=== PATIENT | female | born 1965 | race Caucasian/White ===

== ENCOUNTER → 2024-08-04 07:22 | Outpatient (REF) | payer BC, SELFPAY | LOC: HWWDC 07:22 | PROVIDERS: ATTENDING PHYSICIAN Obstetrics & Gynecology; FAMILY PHYSICIAN Family Medicine | DX: Z12.31 Encounter for screening mammogram for malignant neoplasm of breast (principal) | CPT/HCPCS: 77063; 77067 ==

== ENCOUNTER 2024-10-06 12:26 | Inpatient (IN) | payer BC, SELFPAY ==
[2024-10-06] VITALS (7 sets, daily range): BP systolic 123–152; BP diastolic 45–80; BMI 29.0; BMI 29.4
[2024-10-06] MEDS: ZOFRAN 4 MG IV (04:59)
[2024-10-06 05:06] LABS: % Basophils 0.3 % (0-2); % Eosinophils 0.5 % (0-6); % Immature Granulocytes 0.4 % (0-0.5); % Lymphocytes 17.3 % (20.5-51.1); % Monocytes 4.5 % (1.7-9.3); Absolute Eosinophils 0.1 10^3/uL (0-0.7); Absolute Immature Granulocytes 0.1 10^3/uL (0-0.05); Absolute Lymphocytes 2.6 10^3/uL (1.2-3.4); Absolute Monocytes 0.7 10^3/uL (0.1-0.6); Absolute Neutrophils 11.6 10^3/uL (1.4-6.5); Hemoglobin 14.7 g/dL (12.0-16.0); Mean Corp Hgb Conc. 35.9 g/dL (33.0-37.0); Mean Corpuscular Hgb 30.4 pg (27.0-31.0); Mean Corpuscular Volume 84.9 fL (81.0-99.0); Mean Platelet Volume 10.3 fL (7.4-10.4); Nucleated Red Blood Cells % 0 %; Platelet Count 260 10^3/uL (130-400); Red Blood Cell Count 4.83 10^6/uL (4.20-5.40); Red Cell Dist. Width 11.7 % (11.5-14.5)
--- NOTE | 2024-10-06 05:20 | ED.GENMED ---
History of Present Illness
<DO Irina Choudhury Filed: 10/06/24 05:23>
General
Chief Complaint: Abdominal Pain
Source: patient
Time Seen by Provider: 10/06/24 05:14
History of Present Illness
History of Present Illness:
59-year-old female presents to the emergency room complaining of right upper quadrant abdominal pain that radiates up to her chest. Symptoms began at about 1 AM suddenly. Pain woke her from sleep. She has had nausea and vomiting as well. Patient
denies any previous abdominal operations. She takes medication for anxiety but no other prescription medications.
Past History
<DO Irina Choudhury Filed: 10/06/24 05:23>
Past History
ED Past Medical History: None
Phy Exam
<DO Irina Choudhury Last Filed: 10/06/24 05:23>
Physical Exam
Physical Exam:
General: Awake, Alert, Oriented X3. Patient is in acute distress from abdominal pain.
Vitals: unremarkable
Head: Atraumatic
Eyes: Pupils equal, EOMI
Throat: Airway intact, no exudates
Neck: Trachea midline
Lungs: Clear and equal b/l
Heart: Regular rate, no murmurs
Abd: Soft, tender to palpation right upper quadrant and epigastrium, no pulsatile mass
Neuro: Nonfocal
Skin: Warm, dry, no rash
Extremities: pulses equal b/l, no edema
Course
<DO Irina Choudhury Filed: 10/06/24 05:23>
Orders/Labs/Results
Orders:
Orders
10/06/24 04:38
Electrocardiogram (*1) Urgent
Reason for Study: Abdominal Pain
IV Insert/Care/Rem.- Treatment PRN
10/06/24 04:39
EKG- Treatment ONCE
10/06/24 04:53
Complete Blood Count/With Diff Urgent
Comprehensive Metabolic Panel Urgent
Lipase Urgent
10/06/24 04:56
Ondansetron Injectable [Zofran] 4 mg .ROUTE .STK-MED ONE
10/06/24 04:59
Ondansetron Injectable [Zofran] 4 mg IV NOW STA
10/06/24 05:19
HYDROmorphone [Dilaudid] 1 mg .ROUTE .STK-MED ONE
HYDROmorphone [Dilaudid] 1 mg IV NOW STA
10/06/24 05:20
US Abdomen Complete/Upper Urgent
Comment:
Reason For Exam: ruq pain
10/06/24 05:21
CR Chest - 2 Views Urgent
Comment:
Reason For Exam: upper abd/chest pain
10/06/24 07:42
HYDROmorphone [Dilaudid] 0.5 mg .ROUTE .STK-MED ONE
10/06/24 07:43
HYDROmorphone [Dilaudid] 0.5 mg IV NOW STA
10/06/24 08:03
Urinalysis Reflex To Culture Urgent
Date Specimen was Collected: 10/06/24
Time Specimen was Collected: 08:00
10/06/24 08:21
CT Abd/pelvis W Iv Cont Urgent
Comment:
Reason For Exam: ruq pain
Abnormal Lab Results
10/06/24 10/06/24
04:53 08:03
WBC 15.0 H 10^3/uL
(4.8-10.8)
Abs Immat Gran (auto) 0.1 H 10^3/uL
(0-0.05)
Absolute Neuts (auto) 11.6 H 10^3/uL
(1.4-6.5)
Absolute Monos (auto) 0.7 H 10^3/uL
(0.1-0.6)
Neutrophils % 77.0 H %
(42.2-75.2)
Lymphocytes % 17.3 L %
(20.5-51.1)
Potassium 3.4 L mmol/L
(3.5-5.1)
Carbon Dioxide 18 L mmol/L
(22-30)
Glucose 130 H mg/dl
(70-99)
Calcium 10.4 H mg/dl
(8.4-10.2)
Urine Ketones 1+ A
(Negative)
10/06/24 04:53
10/06/24 04:53
Vital Signs
Initial and Last Documented VS:
Initial Vital Signs
Temp Pulse Resp BP Pulse Ox
97.6 F 109 32 142/67 98
10/06/24 04:34 10/06/24 04:34 10/06/24 04:34 10/06/24 04:34 10/06/24 04:34
Last Documented Vital Signs
Temp Pulse Resp BP Pulse Ox
98.4 F 86 13 131/54 100
10/06/24 10:51 10/06/24 06:45 10/06/24 06:45 10/06/24 10:51 10/06/24 10:51
<Orestes Cardozo, DO - Last Filed: 10/06/24 11:34>
Orders/Labs/Results
Orders:
Orders
10/06/24 04:38
Electrocardiogram (*1) Urgent
Reason for Study: Abdominal Pain
IV Insert/Care/Rem.- Treatment PRN
10/06/24 04:39
EKG- Treatment ONCE
10/06/24 04:53
Complete Blood Count/With Diff Urgent
Comprehensive Metabolic Panel Urgent
Lipase Urgent
10/06/24 04:56
Ondansetron Injectable [Zofran] 4 mg .ROUTE .STK-MED ONE
10/06/24 04:59
Ondansetron Injectable [Zofran] 4 mg IV NOW STA
10/06/24 05:19
HYDROmorphone [Dilaudid] 1 mg .ROUTE .STK-MED ONE
HYDROmorphone [Dilaudid] 1 mg IV NOW STA
10/06/24 05:20
US Abdomen Complete/Upper Urgent
Comment:
Reason For Exam: ruq pain
10/06/24 05:21
CR Chest - 2 Views Urgent
Comment:
Reason For Exam: upper abd/chest pain
10/06/24 07:42
HYDROmorphone [Dilaudid] 0.5 mg .ROUTE .STK-MED ONE
10/06/24 07:43
HYDROmorphone [Dilaudid] 0.5 mg IV NOW STA
10/06/24 08:03
Urinalysis Reflex To Culture Urgent
Date Specimen was Collected: 10/06/24
Time Specimen was Collected: 08:00
10/06/24 08:21
CT Abd/pelvis W Iv Cont Urgent
Comment:
Reason For Exam: ruq pain
Abnormal Lab Results
10/06/24 10/06/24
04:53 08:03
WBC 15.0 H 10^3/uL
(4.8-10.8)
Abs Immat Gran (auto) 0.1 H 10^3/uL
(0-0.05)
Absolute Neuts (auto) 11.6 H 10^3/uL
(1.4-6.5)
Absolute Monos (auto) 0.7 H 10^3/uL
(0.1-0.6)
Neutrophils % 77.0 H %
(42.2-75.2)
Lymphocytes % 17.3 L %
(20.5-51.1)
Potassium 3.4 L mmol/L
(3.5-5.1)
Carbon Dioxide 18 L mmol/L
(22-30)
Glucose 130 H mg/dl
(70-99)
Calcium 10.4 H mg/dl
(8.4-10.2)
Urine Ketones 1+ A
(Negative)
10/06/24 04:53
10/06/24 04:53
Vital Signs
Initial and Last Documented VS:
Initial Vital Signs
Temp Pulse Resp BP Pulse Ox
97.6 F 109 32 142/67 98
10/06/24 04:34 10/06/24 04:34 10/06/24 04:34 10/06/24 04:34 10/06/24 04:34
Last Documented Vital Signs
Temp Pulse Resp BP Pulse Ox
98.4 F 86 13 131/54 100
10/06/24 10:51 10/06/24 06:45 10/06/24 06:45 10/06/24 10:51 10/06/24 10:51
<DO Irina Arreola Last Filed: 10/06/24 11:34>
*Radiology
Radiology exam reviewed: preliminary read by ED provider (no free air noted. ) and radiology read reviewed
*Pulse Oximetry
Patient hypoxic: no
*Critical Care Note
Total Time (30-74mins, 75-104mins- exclusive of procedures): Not Applicable
Data Reviewed
Source: patient and spouse (spouse adds her pain was severe)
Prescriptions/Medications Considered But Not Given:
Consider antibiotics but sign of cholecystitis by CT or ultrasound
<DO Irina Arreola Last Filed: 10/06/24 11:34>
Patient Management
Discussion with other providers: Hospitalist
Escalation/DeEscalation of care consider admission/obs:
Patient reassessed and pain is returning. Abdomen examined and she still is tender in her right upper quadrant. Question whether this is from CT findings of partial small bowel obstruction versus gallbladder source. She does have a noted stone
but no obvious pericholecystic fluid. Given her persistence of symptoms. Admit. Likely could benefit from gastroenterology versus surgical consultation. N.p.o. for now
ED Attending Note
<Donnie Davis DO - Last Filed: 10/06/24 05:23>
-
Portions of this chart may have been created with voice recognition software.� Occasional wrong word or��sound alike� substitutions may have occurred due to the inherent limitations of voice recognition software.
Discharge Plan
Departure
Patient Disposition: Admit
Date of Disposition: 10/06/24
Time of Disposition: 11:32
Admit to: Med/Surg
Presentation/result/management discussed w/ accepting MD/DO: Hospitalist
Discharge Problem:
Cholelithiasis, Partial small bowel obstruction
Prescriptions:
No Action
ibuprofen 800 MG tablet
800 mg PO TID Qty: 20 0RF
hydrocodone-acetaminophen 5 MG/500 MG tablet
1 tab PO .Q6HR Qty: 10 0RF
Referrals:
Rah Savage MD [Family Provider] -
Interventions
Interventions:
*Risk Screen - Suicide Last Done: 10/06/24 04:34
*General Assessment Last Done: 10/06/24 04:34
*Neglect/Abuse Screening Last Done: 10/06/24 04:34
ED- Fall Risk Assessment Last Done: 10/06/24 04:34
*ED COVID-19 Vaccine History Last Done: 10/06/24 04:34
PV-[id number]-[id number] Assessment Last Done: 10/06/24 05:16
Discharge Date and Time
Print Language: LAO
[2024-10-06] MEDS: DILAUDID 1 MG IV ×2 (05:24→16:12)
[2024-10-06 05:30] LABS: ALT (SGPT) 16 U/L (0-35); AST (SGOT) 22 U/L (14-36); Albumin 4.7 g/dl (3.5-5.0); Alkaline Phosphatase 92 U/L (38-126); Blood Urea Nitrogen 12 mg/dl (7-17); Calcium 10.4 mg/dl (8.4-10.2); Carbon Dioxide 18 mmol/L (22-30); Chloride 105 mmol/L (98-107); Glucose 130 mg/dl (70-99); Lipase 267 U/L (23-300); Potassium 3.4 mmol/L (3.5-5.1); Sodium 138 mmol/L (135-145); Total Bilirubin 0.8 mg/dl (0.2-1.3); Total Protein 7.6 g/dl (6.3-8.2); eGFR > 60.00
[2024-10-06] MEDS: DILAUDID 0.5 MG IV (07:43)
[2024-10-06 08:36] LABS: Urine Albumin Negative (Neg - Trace); Urine Bilirubin Negative (Negative); Urine Character Slightly Cloudy (Clear); Urine Color Yellow; Urine Glucose Negative (Negative); Urine Ketone 1+ (Negative); Urine Leukocyte Negative (Negative); Urine Nitrite Negative (Negative); Urine Occult Blood Negative (Negative); Urine Specific Gravity 1.015 (<1.030); Urine Urobilinogen Negative (Neg - 1+)
--- NOTE | 2024-10-06 11:40 | HPS.HSE ---
Family Physician
-
Family Physician: Rah Savage
Chief Complaint
-
Right upper quadrant abdominal pain
History of Present Illness
59 years old female who went to bed feeling normal. She woke up around 1 AM with right-sided abdominal pain radiating to her right shoulder. She had nausea and threw up twice. No fever or chills. Presented to the ER was found to have
leukocytosis. Abdominal ultrasound showed cholelithiasis without signs of inflammation. Abdominal CAT scan showed possible low-grade partial small bowel obstruction with biliary sludge versus stones in the gallbladder. Patient denied sick
contact.
Medical History
Past Medical History
Past Medical History: Reports Other (History of anxiety. History of obesity, on diet and Wegovy)
Past Surgical History: Reports Other (No recent major surgery )
Social History
Tobacco: Non-smoker
Alcohol: Occasional
Drug: None
Personal:
Living: With Family
Employment: Employed
Family History
Family History: Other (Her mother had bowel obstruction and form of colitis)
Allergies / Home Medications
Allergies reflects when Allergies were last updated in [employer].
Home Medications with original date entered in [employer]
Allergy/Medication List:
Allergies
Allergy/AdvReac Type Severity Reaction Status Date / Time
codeine [Codeine] Allergy Severe Hives Verified 10/06/24 04:34
Home Medications
biotin 5 mg capsule 5 mg PO HS 10/06/24
bismuth subsalicylate 262 mg chewable tablet (Pepto-Bismol) 2 tab PO DAILYPRN PRN GERD 10/06/24
levocetirizine 5 mg tablet (Xyzal) 5 mg PO HS 10/06/24
magnesium oxide 200 mg PO HS 10/06/24
semaglutide (weight loss) 2.4 mg/0.75 mL subcutaneous pen injector (Wegovy) 2.4 mg SC 10/06/24
sertraline 50 mg tablet 50 mg PO DAILY 10/06/24
Review of Systems
-
History Source: Patient
A 12 point ROS was completed and negative except as noted: Yes
Constitutional: Denies Fever
EENT: Denies Sore Throat
Respiratory: Denies Cough
Cardiac: Denies Chest Pain
Abdomen/GI: Reports Abdominal Pain, Nausea and Vomiting
: Denies Dysuria
Musculoskeletal: Denies Joint Pain
Skin: Denies Rash
Neurological: Denies Numbness
Endocrine: Denies Temp Intolerance
Psych: Denies Panic Disorder
Physical Exam
Vital Signs
Vital Signs
Temp Pulse Resp BP Pulse Ox
98.4 F 86 13 131/54 100
10/06/24 10:51 10/06/24 06:45 10/06/24 06:45 10/06/24 10:51 10/06/24 10:51
Physical Exam
General: No Apparent Distress and Pain (Right upper quadrant of abdomen)
HEENT: Moist mucous membranes and Atraumatic
Respiratory: Clear
Cardiac: S1/S2 and Regular Rhythm
GI: Soft, Non Distended and Tender (Right upper quadrant)
Rectal: No Masses Palpated
Genito-urinary: No Bloody Urine
Musculoskeletal: No Clubbing, No Cyanosis and No Edema
Skin: Warm; No Jaundice
Neuro: AO x 3 and Nonfocal/grossly intact
Psych: Calm and Intact Judgment/Insight
Laboratory Results
-
10/06/24 04:53
10/06/24 04:53
Laboratory Results
Total Bilirubin 0.8 mg/dl (0.2-1.3) 10/06/24 04:53
AST 22 U/L (14-36) 10/06/24 04:53
ALT 16 U/L (0-35) 10/06/24 04:53
Alkaline Phosphatase 92 U/L (38-126) 10/06/24 04:53
Lipase 267 U/L (23-300) 10/06/24 04:53
Impression/Plan
-
59 years old female presented with sudden onset abdominal pain
#Right upper quadrant abdominal pain
Admit the patient to the hospital
Differential diagnosis include gallbladder disease/bowel obstruction
Abdominal ultrasound consistent with cholelithiasis without inflammation. CAT scan showed possible low-grade small bowel obstruction with gallbladder sludge
Positive leukocytosis
Give antipain medication. She did well with Dilaudid in the ER with no reaction
Continue with antiemetic, Zofran, IV Protonix for reflux
Empiric IV Rocephin
N.p.o. for now, IV fluid
Patient does not have history of significant constipation, she denied passing gas for today
Order HIDA scan if possible
Will discuss with surgery, appreciate help
History of obesity, on Wegovy. She was prediabetic.
#History of anxiety, she is on sertraline. Mood is a pleasant and cooperative
#Hypokalemia, replace
# Hypercalcemia, likely due to dehydration, give IV fluid
# DVT prophylaxis
Total time spent to see the patient, examine the patient, review data and lab results, discuss the treatment plan with patient, ER doctor, nursing staff around 75 minutes
[2024-10-06] MEDS: D5/0.9% SODIUM CHLORIDE 1000 IV ×2 (11:51→19:34)
--- NOTE | 2024-10-06 15:25 | PTCARENOTE ---
called to see pt in nuclear medicine, requires Morphine 2mg during HIDA scan. VSS, pt given Morphine 2mg IV at 1504 per MD orders via left arm IV.
[2024-10-06] MEDS: STERILE WATER FOR INJECTION 10 ML IV (16:13)
[2024-10-06] MEDS: ROCEPHIN 1000 MG IV (16:13)
--- NOTE | 2024-10-06 16:26 | PTCARENOTE ---
Pt arrived to 2S via stretcher, ambulated to the bed independently, gait steady. IVF infusing per order. Pt with c/o moderate abdominal pain, PRN pain medication provided. Denies nausea at this time. Pt instructed on NPO status, verbalized
understanding. Bed locked and in the lowest position, safety maintained. Oriented to room and call rodriguez, spouse at bedside.
[2024-10-06] MEDS: BENADRYL 12.5 MG IV ×2 (16:59→23:04)
--- NOTE | 2024-10-06 18:29 | CON.GS ---
Consultation
-
Date/Time Consultation Requested: 10/06/2024 1 PM
Date/Time Consultation Performed: 10/06/2024 5 PM
Requesting Provider: Dr. Pardo
Performing Provider: Dr. Ordaz
Reason for Consultation: Cholelithiasis
Medical History
-
Chief Complaint: Right upper quadrant pain
History of Present Illness:
This is a 59-year-old female who woke up this morning around 1 AM with right upper quadrant abdominal pain rating to her shoulder. She had nausea and threw up twice. It was noted to be nonbloody and nonbilious. She presented to our ED ER and
found to have a leukocytosis. CT scan did note a 'low-grade partial small bowel obstruction at the site of some intraluminal material, after discussion with the patient this is thought to be Pepto-Bismol as well as possible cholelithiasis without
signs of inflammation or stigmata of cholecystitis. . The patient denies Fever, Chest Pain, Shortness Of Breath, Nausea, Vomiting, changes in urinary and bowel habits, unintentional weight loss, jaundice, icterus, acolic stools.
Past Medical History
Past Medical History: Reviewed & Noncontributory and Other (Obesity, on Wegovy)
Past Surgical History: Reviewed & Noncontributory and
Social History
Tobacco: Non-Smoker
Alcohol: None
Drug: None
Personal:
Living: With Family
Family History
Family History: Reviewed & Not Pertinent
Allergies / Home Medications
Allergy/AdvReac Type Severity Reaction Status Date / Time
codeine [Codeine] Allergy Severe Hives Verified 10/06/24 04:34
�Medication �Instructions �Recorded �Confirmed �Type
biotin 5 mg capsule 5 mg PO HS 10/06/24 10/06/24 History
bismuth subsalicylate 262 mg 2 tab PO DAILYPRN PRN GERD 10/06/24 10/06/24 History
chewable tablet (Pepto-Bismol)
levocetirizine 5 mg tablet (Xyzal) 5 mg PO HS 10/06/24 10/06/24 History
magnesium oxide 200 mg PO HS 10/06/24 10/06/24 History
semaglutide (weight loss) 2.4 2.4 mg SC TH 10/06/24 10/06/24 History
mg/0.75 mL subcutaneous pen
injector (Wegovy)
sertraline 50 mg tablet 50 mg PO DAILY 10/06/24 10/06/24 History
Review of Systems
-
All other systems: Negative unless noted
A 10 point review of systems was completed, and was negative except as per HPI.
Physical Exam
Vital Signs
Temp Pulse Resp BP Pulse Ox
98.6 F 97 17 132/80 100
10/06/24 15:55 10/06/24 15:55 10/06/24 15:55 10/06/24 15:55 10/06/24 15:55
10/05/24 10/06/24 10/07/24
06:59 06:59 06:59
Actual Weight 84.958 kg
Body Mass Index (BMI) 29.4
Lab Results
10/06/24 04:53
10/06/24 04:53
WBC 15.0 10^3/uL (4.8-10.8) H 10/06/24 04:53
Hgb 14.7 g/dL (12.0-16.0) 10/06/24 04:53
Hct 41.0 % (37.0-47.0) 10/06/24 04:53
Plt Count 260 10^3/uL (130-400) 10/06/24 04:53
Abs Immat Gran (auto) 0.1 10^3/uL (0-0.05) H 10/06/24 04:53
Neutrophils % 77.0 % (42.2-75.2) H 12/27/24 04:53
Physical Exam
General: Well Developed
HEENT: Normocephalic
Respiratory: Non Labored Respirations
GI: Soft, Non Distended, Tender and Obese
Data Reviewed
-
CT Scan: Image Personally Visualized and interpreted, Report Reviewed by me, Discussed with Physician, Discussed with Patient and Discussed with Family
Ultrasound: Image Personally Visualized and interpreted, Report Reviewed by me and Discussed with Patient
Medical Tests (Nuc Med, Echo etc): Image Personally Visualized and interpreted, Report Reviewed by me and Discussed with Patient
Labs: Labs Reviewed by me and Discussed with Patient
Total Time Spent with Patient (in minutes): 75
Assessment / Plan
-
This is a 59-year-old female who presents with right upper quadrant abdominal pain and noted to have cholelithiasis on imaging as well as a distended gallbladder. Subsequent HIDA scan showed nonvisualization of the gallbladder suggesting cystic
duct obstruction, concerning for acute cholecystitis.
Will plan for a laparoscopic cholecystectomy in the OR tomorrow.
N.p.o., IV fluids, IV antibiotics ordered.
Risks/Benefits/Alternatives, expected postoperative course and possible complications (bleeding, infection, injury to surrounding structures, acute/chronic pain) discussed at length. Patient wishes to proceed with surgery. All questions answered.
Consent obtained.
I spent 75 minutes in total for the care of this patient today including direct patient care and counseling, reviewing labs, imaging, coordination of care, as well as documentation.
[2024-10-06] MEDS: FLAGYL 500 MG 100 IV (19:34)
[2024-10-06] MEDS: HEPARIN 5000 UNITS SC (19:34)
[2024-10-06] MEDS: ZYRTEC 5 MG PO (19:45)
[2024-10-07] VITALS (14 sets, daily range): BP systolic 104–143; BP diastolic 52–82; BMI 29.8
[2024-10-07] MEDS: FLAGYL 500 MG 100 IV ×3 (04:21→20:43)
[2024-10-07] MEDS: D5/0.9% SODIUM CHLORIDE 1000 IV ×2 (05:01→17:28)
[2024-10-07] MEDS: TYLENOL 650 MG PO ×3 (05:01→20:43)
[2024-10-07 06:14] LABS: Hematocrit 35.1 % (37.0-47.0); Hemoglobin 11.9 g/dL (12.0-16.0); Mean Corp Hgb Conc. 33.9 g/dL (33.0-37.0); Mean Corpuscular Hgb 30.6 pg (27.0-31.0); Mean Corpuscular Volume 90.2 fL (81.0-99.0); Mean Platelet Volume 10.7 fL (7.4-10.4); Platelet Count 202 10^3/uL (130-400); Red Blood Cell Count 3.89 10^6/uL (4.20-5.40); Red Cell Dist. Width 12.2 % (11.5-14.5); White Blood Cell Count 8.7 10^3/uL (4.8-10.8)
[2024-10-07 06:39] LABS: ALT (SGPT) 18 U/L (0-35); AST (SGOT) 24 U/L (14-36); Albumin 3.3 g/dl (3.5-5.0); Alkaline Phosphatase 62 U/L (38-126); Blood Urea Nitrogen 7 mg/dl (7-17); Calcium 8.7 mg/dl (8.4-10.2); Carbon Dioxide 27 mmol/L (22-30); Chloride 104 mmol/L (98-107); Estimated Creatinine Clearance 100 ml/min; Glucose 85 mg/dl (70-99); Potassium 3.9 mmol/L (3.5-5.1); Sodium 137 mmol/L (135-145); Total Bilirubin 1.1 mg/dl (0.2-1.3); Total Protein 5.7 g/dl (6.3-8.2); eGFR > 60.00
--- NOTE | 2024-10-07 07:56 | W.SUR.PREOP ---
Pre-Operative Surgical Note
-
I have examined this patient prior to the performance of the scheduled procedure.
The patient's condition is unchanged from the time of the current History and
Physical and the patient is able to undergo the scheduled procedure.
[2024-10-07] MEDS: NSS (PRESERVATIVE FREE) 10 ML IV (09:01)
[2024-10-07] MEDS: PROTONIX IV 40 MG IV (09:02)
[2024-10-07] MEDS: HEPARIN 5000 UNITS SC ×2 (09:03→20:44)
--- NOTE | 2024-10-07 09:59 | CM ---
Reviewed the chart notes and spoke with the patient at the bedside. Patient anticipates a laparoscopic cholecystectomy in the OR today. The patient resides with her spouse in a two story home with two steps to enter. The patient reports no
DME/VN/SNF in the past. The patient confirmed her PCP is Dr. Rah Savage and pharmacy is [facility]. The patient anticipates being discharged to home tomorrow. Patient's spouse will provide transportation. CM continues to be
available to patient/family and is monitoring medical plan for needs at discharge.
Plan: Discharge to home when medically stable. No needs anticipated at this time.
--- NOTE | 2024-10-07 10:41 | W.PN.HOSP.TC ---
Today's Communication/Plan
-
NPO
surgery today
Assessment / Plan
Assessment / Plan
Physical Exam
General: No Apparent Distress and Pain (Right upper quadrant of abdomen)
HEENT: Moist mucous membranes and Atraumatic
Respiratory: Clear
Cardiac: S1/S2 and Regular Rhythm
GI: Soft, Non Distended and not much Tender (Right upper quadrant)
Rectal: No Masses Palpated
Genito-urinary: No Bloody Urine
Musculoskeletal: No Clubbing, No Cyanosis and No Edema
Skin: Warm; No Jaundice
Neuro: AO x 3 and Nonfocal/grossly intact
Psych: Calm and Intact Judgment/Insight
59 years old female presented with sudden onset abdominal pain
#Right upper quadrant abdominal pain
Acute cholecystitis
c/w pain control
IV Rocephin
NPO for today
plan for surgery
Appreciate surgery help
# History of obesity, on Wegovy. She was prediabetic.
#History of anxiety, she is on sertraline. Mood is a pleasant and cooperative
#Hypokalemia, replaced
# Leukocytosis, resolved
No fevers
# Hypercalcemia, likely due to dehydration, give IV fluid
# DVT prophylaxis
Total time spent to see the patient, examine the patient, review data and lab results, discuss the treatment plan with patient, surgery, nursing staff around 55 minutes
Anticipated Discharge: Within 24 hours
Subjective/Interval History
-
Date of Service: October 07, 2024
No abd pain
No nausea
Objective Data
-
Labs:
Laboratory Results
10/07/24
04:35
WBC 8.7
Hgb 11.9 L
Hct 35.1 L
Plt Count 202 D
Sodium 137
Potassium 3.9
Chloride 104
Carbon Dioxide 27
BUN 7
Creatinine 0.7
Glucose 85
Calcium 8.7 D
Total Bilirubin 1.1
AST 24
ALT 18
Alkaline Phosphatase 62
Vital Signs:
Vital Signs
Temp Pulse Resp BP Pulse Ox
97.7 F 81 16 118/64 96
10/07/24 08:07 10/07/24 08:07 10/07/24 08:07 10/07/24 08:07 10/07/24 08:07
I&O
10/06/24 10/07/24 10/08/24
06:59 06:59 06:59
Intake Total 2430 / 2430
Balance 2430 / 2430
--- NOTE | 2024-10-07 16:27 | W.IMMPOSTOP ---
Surgical Immed Post Op Note
-
Primary Surgeon: Kris Ordaz MD
Assisting Surgeon: None
Pre-op Diagnosis: Acute cholecystitis
Post-op Diagnosis: Same
Procedure Performed: Laparoscopic cholecystectomy with cholangiogram
Anesthesia Type: General
Specimen / Cultures: Gallbladder and contents
Estimated Blood Loss: 11 cc
Complications: None
Operative Findings: Distended and hemorrhagic appearing gallbladder that was decompressed prior to standard laparoscopic cholecystectomy. Critical view of safety obtained prior to attempted intraoperative cholangiogram. Her cystic duct was quite
diminutive and despite being able to milk bile retrograde through the opening, using several different cholangiocatheter as we were unable to successfully cannulate the duct to obtain a cholangiogram thus it was aborted. The duct was ligated with
three 5 mm clips (no Endoloops available).
POST OP PLAN:
Imaging: None
Labs: Routine AM
Diet: Advance to Regular as tolerated
Analgesia: Tylenol 650mg q6 Iron, Yuliya 5mg q6 PRN, Dilaudid 0.5mg q2h PRN
Neuro/vascular checks: q4h
AC/AP: Hold Therapeutic AC, Ok for DVT PPx
Activity: Ad Ashley
Wound/Incisions/Drains: Routine
Abx: Continue antibiotics while admitted, can stop on discharge
Dispo: RNF, anticipate home tomorrow.
--- NOTE | 2024-10-07 16:30 | OR.RPT ---
Operative Report
Operative Report
Patient Name: Lori Clayton
: 1965
Date of Operation: 10/07/2024
Preoperative Diagnosis: Acute cholecystitis
Postoperative Diagnosis: Same
Procedure(s):
Laparoscopic Cholecystectomy with Cholangiogram
Surgeon(s):
Dr. Ordaz
Acoustical Engineer(s):
None
Anesthesia: General
Estimated Blood Loss: 11 cc
Urine Output: None
Drains/Lines/Implants: None
Specimens:
1. Gallbladder and contents
HPI/Surgical Indications:
This is a 59-year-old female who presents with a 3-day history of vague epigastric/right upper quadrant abdominal pain. Her initial imaging was initially fairly equivocal but a subsequent HIDA scan confirmed acute cholecystitis.
Risks/Benefits/Alternatives were discussed at length, and the patient agreed to proceed with surgery.
Operative Findings: Distended and hemorrhagic appearing gallbladder that was decompressed prior to standard laparoscopic cholecystectomy. Critical view of safety obtained prior to attempted intraoperative cholangiogram. Her cystic duct was quite
diminutive and despite being able to milk bile retrograde through the opening, using several different cholangiocatheter as we were unable to successfully cannulate the duct to obtain a cholangiogram thus it was aborted. The duct was ligated with
three 5 mm clips (no Endoloops available).
Procedure Description:
The patient was brought to the Operating Room and placed in the supine position with one arm tucked. Following uneventful induction of general endotracheal anesthesia, an orogastric tube was placed. The abdomen was prepped and draped in the usual
sterile fashion. A timeout was performed confirming the procedure, consent, and that IV antibiotics were infused and sequential compression devices were confirmed to be on. The abdomen was entered using a left subcostal Veress technique which
required a single pass followed by a 5 mm right upper quadrant Optiview trocar. Pneumoperitoneum to 15 mmHg pressure was obtained without difficulty and we confirmed that no injury had occurred during our entry. The patient was positioned in
reverse Trendelenberg and rotated with the right side up slightly. Two 5 mm trocars were then placed along the right subcostal margin, followed by a 12 mm port in the epigastrium. The gallbladder was emptied using a decompressing needle through
the fundus of the gallbladder with evacuation of hydrops before A locking grasping forceps was placed on the fundus of the gallbladder where it was then retracted cephalad and to the right. Using appropriate grasping instruments, the peritoneum
overlying the triangle of Calot was incised and extended superiorly on both the anterior and posterior gallbladder coleman. The infundibulum was dissected off the cystic plate. The cystic triangle was dissected until a critical view of safety was
achieved. The cystic artery was medialized, dissected and controlled with 2 proximal clips and 1 distal. The cystic duct/gallbladder junction in turn was identified, dissected circumferentially and a clip was placed. A ductotomy was made and a
cholangiocatheter on an Elias clamp was inserted into the cystic duct. While we were able to get good bile backflow, we were not able to cannulate the duct for more than a few millimeters. We attempted this with a different cholangiogram catheter
with the same result thus the cholangiogram was aborted. The catheter was then removed and the cystic duct was controlled with three 5 mm titanium clips. After ensuring both the artery and duct were divided, the gallbladder was freed from the liver
using electrocautery. There was no spillage of bile or stones. The gallbladder bed was inspected and excellent hemostasis was obtained. Surgiflo was used on the liver bed to ensure good hemostasis. The gallbladder was extracted through the 12 mm
trocar site using an endocatch bag. The abdomen was again irrigated and excellent hemostasis was assured. All remaining trocars were then removed and the pneumoperitoneum was evacuated. The 12 mm trocar site was closed using 0 PDS suture. All
trocar sites were closed at the skin level using 4-0 Monocryl followed by Dermabond. Overall, the patient tolerated the procedure well and was taken to the Recovery Room postoperatively in stable condition.
I was the attending physician and performed the procedure with no assistance. I was present for all portions of the case
Kris Ordaz MD
[2024-10-07] MEDS: SUBLIMAZE 50 MCG IV (17:00)
[2024-10-07] MEDS: ROCEPHIN 1000 MG IV (17:05)
[2024-10-07] MEDS: STERILE WATER FOR INJECTION 10 ML IV (17:05)
--- NOTE | 2024-10-07 18:08 | SUR.PHASEI ---
1750 patient arrrived in pacu in delirium, no verbalization, thrashing arms and head - arching back, O2 increased to mask to improve sats, At 1700 awake, oriented, c/o pain. medicated for same, sleeps. easily arousable and oriented,
cooperative, vss, Dr Frausto and Dr Ordaz aware of delirium and that patient now oriented and sleeps if undisturbed, takes ice chips po
[2024-10-07] MEDS: D5/0.9% SODIUM CHLORIDE IV (20:00)
[2024-10-07] MEDS: BENADRYL 12.5 MG IV (20:44)
[2024-10-08 03:35] VITALS: BP 145/88
[2024-10-08] MEDS: FLAGYL 500 MG 100 IV (04:15)
[2024-10-08] MEDS: TYLENOL 650 MG PO (05:27)
[2024-10-08 07:11] VITALS: BP 147/78
[2024-10-08] MEDS: HEPARIN 5000 UNITS SC (07:55)
[2024-10-08] MEDS: PROTONIX IV 40 MG IV (07:55)
[2024-10-08] MEDS: NSS (PRESERVATIVE FREE) 10 ML IV (07:58)
[2024-10-08] MEDS: MIRALAX 17 GRAMS PO (07:58)
[2024-10-08 08:36] LABS: ALT (SGPT) 38 U/L (0-35); AST (SGOT) 48 U/L (14-36); Albumin 3.5 g/dl (3.5-5.0); Alkaline Phosphatase 74 U/L (38-126); Blood Urea Nitrogen 5 mg/dl (7-17); Calcium 8.8 mg/dl (8.4-10.2); Carbon Dioxide 24 mmol/L (22-30); Chloride 104 mmol/L (98-107); Estimated Creatinine Clearance 117 ml/min; Glucose 94 mg/dl (70-99); Potassium 3.6 mmol/L (3.5-5.1); Sodium 136 mmol/L (135-145); Total Bilirubin 0.7 mg/dl (0.2-1.3); eGFR > 60.00
[2024-10-08] MEDS: D5/0.9% SODIUM CHLORIDE IV (08:50)
--- NOTE | 2024-10-08 09:00 | W.PN.GS2 ---
Today's Communication / Plan
-
dispo planning
Assessment / Plan
-
59 yo female presenting with ACC now POD #1 lap saúl, attempted intraop IOC but unable to complete d/t small sized cystic duct
Afebrile, mild tachycardia overnight which is now resolved, BP stable
Bilirubin normal on today's labs with mild transaminitis secondary to instrumentation
Continue regular diet
Analgesics prn
Ok for discharge from surgical standpoint, d/c instructions updated
Subjective Data
-
Date of Service: October 08, 2024
Patient seen and examined at bedside with Dr. banuelos. Ahmeties n/v. Tolerating diet. Some incisional soreness. Passing flatus.
Objective Data
-
Intake and Output
10/07/24 10/08/24 10/09/24
06:59 06:59 06:59
Intake Total 2430 / 2430 1260 / 1260 1480 / 1480
Balance 2430 / 2430 1260 / 1260 1480 / 1480
Intake:
Oral fluids 480 / 480 10 / 10 480 / 480
IV fluids (Total) 1750 / 1750 1250 / 1250 800 / 800
normosol 250 / 250
IV piggybacks 200 / 200 200 / 200
Other:
Number of approximated MODERATE 4
amounts of urine
Number of approximated LARGE 3
amounts of urine
Vital Signs
Temp Pulse Resp BP Pulse Ox
98.3 F 93 20 147/78 98
10/08/24 07:11 10/08/24 07:11 10/08/24 07:11 10/08/24 07:11 10/08/24 07:11
Lab Results
10/07/24 04:35
10/08/24 07:22
Calcium 8.8 mg/dl (8.4-10.2) 10/08/24 07:22
Total Bilirubin 0.7 mg/dl (0.2-1.3) 10/08/24 07:22
AST 48 U/L (14-36) H 10/08/24 07:22
ALT 38 U/L (0-35) H 10/08/24 07:22
Alkaline Phosphatase 74 U/L (38-126) 10/08/24 07:22
Total Protein 6.0 g/dl (6.3-8.2) L 10/08/24 07:22
Albumin 3.5 g/dl (3.5-5.0) 10/08/24 07:22
Physical Exam
-
NAD
ABD soft, mild incisional tenderness, nd
Incisions well approximated with intact glue
--- NOTE | 2024-10-08 11:01 | W.PN.HOSP.TC ---
Today's Communication/Plan
-
dc
Assessment / Plan
Assessment / Plan
Physical Exam
General: No Apparent Distress and Pain (Right upper quadrant of abdomen)
HEENT: Moist mucous membranes and Atraumatic
Respiratory: Clear
Cardiac: S1/S2 and Regular Rhythm
GI: Soft, Non Distended and not much Tender (Right upper quadrant)
Rectal: No Masses Palpated
Genito-urinary: No Bloody Urine
Musculoskeletal: No Clubbing, No Cyanosis and No Edema
Skin: Warm; No Jaundice
Neuro: AO x 3 and Nonfocal/grossly intact
Psych: Calm and Intact Judgment/Insight
59 years old female presented with sudden onset abdominal pain
#Right upper quadrant abdominal pain
Acute cholecystitis s/p lap saúl, attempted intraop IOC but unable to complete d/t small sized cystic duct
did well over night
tolerated diet
surgery ok to discharge today
Given Miralax
Appreciate surgery help
# History of obesity, on Wegovy. She was prediabetic.
#History of anxiety, she is on sertraline. Mood is a pleasant and cooperative
#Hypokalemia, replaced
# Leukocytosis, resolved
No fevers
# Hypercalcemia, likely due to dehydration, give IV fluid
# DVT prophylaxis
Total discharge time spent to see the patient, examine the patient, review data and lab results, discuss the discharge plan with patient, surgery, nursing staff around 65 minutes
Anticipated Discharge: Today
Subjective/Interval History
-
Date of Service: October 08, 2024
No chest pain
no sob
mild abd discomfort at site of surgery
no fevers
Objective Data
-
Labs:
Laboratory Results
10/08/24
07:22
Sodium 136
Potassium 3.6
Chloride 104
Carbon Dioxide 24
BUN 5 L
Creatinine 0.6
Glucose 94
Calcium 8.8
Total Bilirubin 0.7
AST 48 H
ALT 38 H
Alkaline Phosphatase 74
Vital Signs:
Vital Signs
Temp Pulse Resp BP Pulse Ox
98.3 F 93 20 147/78 98
10/08/24 07:11 10/08/24 07:11 10/08/24 07:11 10/08/24 07:11 10/08/24 07:11
I&O
10/07/24 10/08/24 10/09/24
06:59 06:59 06:59
Intake Total 2430 / 2430 1260 / 1260 1480 / 1480
Balance 2430 / 2430 1260 / 1260 1480 / 1480
[2024-10-08 11:39] VITALS: BP 131/74
--- NOTE | 2024-10-08 13:35 | W.DCSUMMARY ---
Discharge Summary
Discharge Data
Date of Admission: 10/06/24
Date of Discharge: 10/08/24
-
Pending Results: No
Hospital Course
59 years old female presented with abdominal pain. Patient had ultrasound and scan of the abdomen pelvis that showed cholelithiasis without inflammation. Possibility of small bowel obstruction/low-grade. She had clinical presentation typical for
acute cholecystitis with right abdominal discomfort and tenderness radiating to the right shoulder. She had HIDA scan that was suggestive of acute cholecystitis. She was evaluated by surgery and underwent laparoscopic cholecystectomy by Dr. Ordaz
on 10/07. Her cystic duct was quite diminutive and despite being able to milk bile retrograde through the opening, using several different cholangiocatheter as we were unable to successfully cannulate the duct to obtain a cholangiogram thus it was
aborted. The duct was ligated with three 5 mm clips (no Endoloops available). She did well postoperatively. She tolerated diet. She received empiric antibiotics. She remained hemodynamically stable and was discharged home in a stable condition
to follow-up with surgery in the office.
Discharge Plan
-
Patient Disposition: Home (Routine Discharge)
Discharge Diagnosis/Procedures: Acute calculous cholecystitis with cholecystectomy
Condition: Fair
Diet: As tolerated
Activity: No strenuous activity
Bathing Restrictions: OK to Shower
Activity Restrictions/Additional Instructions:
Instructions following Laparoscopic cholecystectomy
Please call [phone] if you have any questions or concerns after your surgery.
Wound Care:
Your incisions are covered with skin glue which will come off on it�s own in 5-10 days.
It is ok to shower the day after your surgery. Do not scrub the incisions, let soap and water wash over them and pat dry.
� Bruising around your incisions is normal.
� Using ice packs will help minimize this swelling.
� No swimming or soaking incisions for 1 week.
� Your stitches will dissolve and do not need to be removed.
Urinary retention:
If you are unable to urinate 6-8 hours after your surgery, please call [phone] to discuss further management.
Activity:
No heavy lifting more than 15 pounds for the next 3 weeks, then you may gradually lift heavier objects as tolerated by discomfort. Otherwise activity as tolerated by your comfort level.
Pain Management:
Use Tylenol, ibuprofen and ice packs to treat your pain.
� You may take 650 milligrams of Tylenol (Max 3 grams per day) every 6 hours, and 600 mg of ibuprofen also every 6 hours. (you can alternate them every 3 hours)
� You may use an ice pack to your incision as needed.
� If you still have pain not controlled by these measures, take your prescription pain medication as prescribed.
Medications:
You may resume your home medications.
Bowel Medications:
Prescription pain medication can make you constipated. If you take this medication, also take colace 100 mg twice daily (this is over the counter). If this is not sufficient, you may take Miralax (polyethylene glycol) to help move your bowels.
Diet:
After your procedure, there are no dietary restrictions. You may notice loose stools for up to 4 weeks after surgery with fatty meals, if this is the case you may have to adjust your diet as needed.
Driving restrictions:
No driving if you are taking prescription pain medication or if you think your normal reaction time and attentiveness has been slowed by your surgery.
Things to Look out for:
Worsening Abdominal pain, redness or drainage from incision
Call Doctor for:
Please call if you notice worsening redness or drainage from incision(s) lasting longer than 5 days after your surgery, any foul-smelling drainage from the incision, pain not controlled by pain medications, persistent nausea and vomiting, or for any
fevers greater than 101.3 F. The number for questions/concerns is [phone]
Follow-up:
Follow-up appointment will be scheduled with your surgeon in 3-4 weeks. Please call prior to your appointment if you have any questions or concerns. [phone]
Referrals:
Rah Savage MD [Family Provider] -
Kris Ordaz MD [Active] - in two to four weeks
Prescriptions:
New
tramadol 50 mg tablet
25 - 50 mg PO Q6HPRN PRN (Reason: severe pain/breakthrough pain) Qty: 8 0RF
Continued
biotin 5 mg Capsule
5 mg PO HS
bismuth subsalicylate [Pepto-Bismol] 262 mg Tablet,Chewable
2 tab PO DAILYPRN PRN (Reason: GERD)
sertraline 50 mg Tablet
50 mg PO DAILY
levocetirizine [Xyzal] 5 mg Tablet
5 mg PO HS
magnesium oxide 200 mg magnesium Tablet
200 mg PO HS
Wegovy 2.4 mg/0.75 mL Pen Injector
2.4 mg SC TH
Discharge Orders:
Discharge Patient (As Directed); Ordered 10/08/24
Ordered By: Reggie Pardo
Discharge Date and Time
Discharge Date/Time: 10/08/24 11:50
Print Language: FRISIAN
== END 2024-10-08 11:50 | disposition home or self-care (01) | DRG 419 ==
LOC: 2 SOUTH 12:26
PROVIDERS: Registered Nurse; ADMITTING PHYSICIAN Internal Medicine; CONSULT PHYSICIAN Surgery; EMERGENCY PHYSICIAN Emergency Medicine; FAMILY PHYSICIAN Family Medicine
PROC: 0FT44ZZ Resection of Gallbladder, Percutaneous Endoscopic Approach (ICD-10-PCS; 2024-10-07)
PROC: BF141ZZ Fluoroscopy of Gallbladder, Bile Ducts and Pancreatic Ducts using Low Osmolar Contrast (ICD-10-PCS; 2024-10-07)
DX: K80.00 Calculus of gallbladder with acute cholecystitis without obstruction (principal); E87.6 Hypokalemia; E83.52 Hypercalcemia
CPT/HCPCS: 88304; 71046; 74177; 76700; 78226; 80053; 81003; 83690; 85025; 85027; 93005; 96374; 96375; 96376; 99285; A4300; A9537; Q9967